=== PATIENT | male | born 1990 | race African-American/Black ===

== ENCOUNTER 2020-01-20 03:45 | Emergency (ER) | payer BC ==
[2020-01-20 04:06] VITALS: BP 126/75; PULSE 94; TEMP 98.6; BMI 32.3
[2020-01-20] MEDS ORDERED: DIPHTH,PERTUSS(ACELL),TET 0.5 ML DISP.SYRIN IM ONE ×2 (04:34→04:43)
[2020-01-20] MEDS ORDERED: AMOX TR/POT CLAV 875MG/125MG TABLETS (FP) PO ONE (04:34)
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
[2020-01-20] MEDS ORDERED: AMOX TR/POT CLAV 875MG/125MG TABLETS (FP) ONE (04:43)
[2020-01-20 04:59] LABS: HEMATOCRIT 47.5 % (35.4-49); HEMOGLOBIN 15.6 GM/dL (11.7-16.9); MCH 26.7 pg (25.7-33.7); MCHC 32.8 g/dl (32.0-35.9); MEAN CELL VOLUME 81.4 fl (80-96); MEAN PLT VOLUME 8.7 fl (7.5-11.1); PLATELET COUNT 201 K/MM3 (134-434); RBC 5.83 M/mm3 (4.00-5.60); RDW 15.4 % (11.9-15.9); WHITE BLOOD COUNT 7.4 K/mm3 (4.0-10.0)
== END 2020-01-20 05:49 | disposition home or self-care (01) ==
LOC: JER 03:45
PROC: 3E0234Z Introduction of Serum, Toxoid and Vaccine into Muscle, Percutaneous Approach (ICD-10-PCS; principal; 2020-01-20)
DX: S51.851A Open bite of right forearm, initial encounter (principal)
CPT/HCPCS: 36415; 80307; 85027; 90715; 99284-25

== ENCOUNTER 2022-02-12 17:44 | Emergency (ER) | payer BC ==
[2022-02-12 18:05] VITALS: BP 150/88; PULSE 77; RESP 18; TEMP 97; BMI 33.9
[2022-02-12] MEDS ORDERED: MAG HYDROX/AL HYDROX/SIMETH 30 ML UNIT-DOSE CUP PO ONE (19:41)
[2022-02-12] MEDS ORDERED: MAG HYDROX/AL HYDROX/SIMETH 30 ML UNIT-DOSE CUP ONE (19:41)
== END 2022-02-12 20:41 | disposition home or self-care (01) ==
LOC: JER 17:44
DX: R10.13 Epigastric pain (principal)
CPT/HCPCS: 99283-25

== ENCOUNTER 2023-12-06 13:14 | Emergency (ER) | payer BC ==
[2023-12-06 13:35] VITALS: BMI 36.0
[2023-12-06] MEDS ORDERED: LIDOCAINE 4% PATCH TP ONE (15:02)
[2023-12-06] MEDS ORDERED: ACETAMINOPHEN INJECTION 100 ML IVPB ONE (15:02)
[2023-12-06] MEDS ORDERED: METHOCARBAMOL 500 MG TABLET ONE (15:02)
[2023-12-06] MEDS: ACETAMINOPHEN 1000 MG/100 ML BAG IVPB ONE (15:19)
[2023-12-06] MEDS: SODIUM CHLORIDE 1,000 ML IV STA (15:19)
[2023-12-06] MEDS: METHOCARBAMOL 500 MG TABLET PO ONE (15:20)
[2023-12-06] MEDS: LIDOCAINE 5% TOPICAL PATCH TP ONE (15:20)
[2023-12-06 15:24] LABS: BASO % 0.1 % (0-2.0); EOS % 0.2 % (0-4.5); HEMATOCRIT 44.7 % (35.4-49); HEMOGLOBIN 14.9 GM/dL (11.7-16.9); LYMPH % 9.6 % (8-40); MCH 27.2 pg (25.7-33.7); MCHC 33.4 g/dl (32.0-35.9); MEAN CELL VOLUME 81.4 fl (80-96); MEAN PLT VOLUME 8.8 fl (7.5-11.1); MONO % 8.9 % (3.8-10.2); NEUT % 81.2 % (42.8-82.8); PLATELET COUNT 197 10^3/uL (134-434); RBC 5.49 M/mm3 (4.00-5.60); RDW 15.6 % (11.9-15.9); WHITE BLOOD COUNT 8.6 K/mm3 (4.0-10.0)
[2023-12-06 15:27] LABS: EPI CELLS 1 /uL (0-25.1); HYALINE CASTS 0 /uL (0-3.1); PH,URINE 5.5 (5.0-8.0); URINE APPEARANCE CLEAR; URINE BACTERIA 7 /uL (0-1359); URINE BILIRUBIN NEGATIVE (NEGATIVE); URINE COLOR YELLOW; URINE GLUCOSE (UA) NEGATIVE (NEGATIVE); URINE KETONE NEGATIVE (NEGATIVE); URINE LEUK ESTERASE NEGATIVE (NEGATIVE); URINE NITRITE NEGATIVE (NEGATIVE); URINE PROTEIN NEGATIVE (NEGATIVE); URINE RBC 10 /uL (0-23.9); URINE UROBILINOGEN 0.2 mg/dL (0.2-1.0); URINE WBC 4 /uL (0-25.8)
[2023-12-06 15:52] LABS: POTASSIUM 4.1 mmol/L (3.5-5.1)
[2023-12-06 15:55] LABS: BLOOD UREA NITROGEN 19.4 mg/dL (7-18); CALCIUM 8.8 mg/dL (8.5-10.1)
[2023-12-06 15:56] LABS: ALBUMIN 3.7 g/dl (3.4-5.0)
[2023-12-06 15:59] LABS: CREATININE 1.2 mg/dL (0.55-1.3)
[2023-12-06 16:00] LABS: TOT PROT 7.5 g/dl (6.4-8.2)
[2023-12-06] MEDS ORDERED: KETOROLAC TROMETHAMINE 15 MG/ML VIAL ONE (17:34)
[2023-12-06] MEDS: KETOROLAC TROMETHAMINE 15 MG/ML VIAL IVPUSH ONE (17:39)
[2023-12-06 17:40] VITALS: BP 124/75; PULSE 95; RESP 20; TEMP 97.7
[2023-12-06] MEDS ORDERED: LIDOCAINE PATCH REMOVAL MC SCH (22:00)
== END 2023-12-06 17:42 | disposition home or self-care (01) ==
LOC: JER 13:14
PROC: 3E033NZ Introduction of Analgesics, Hypnotics, Sedatives into Peripheral Vein, Percutaneous Approach (ICD-10-PCS; principal; 2023-12-06)
PROC: 3E0333Z Introduction of Anti-inflammatory into Peripheral Vein, Percutaneous Approach (ICD-10-PCS; 2023-12-06)
PROC: 3E0337Z Introduction of Electrolytic and Water Balance Substance into Peripheral Vein, Percutaneous Approach (ICD-10-PCS; 2023-12-06)
DX: R10.9 Unspecified abdominal pain (principal); M54.6 Pain in thoracic spine; R19.7 Diarrhea, unspecified; X50.0XXA Overexertion from strenuous movement or load, initial encounter
CPT/HCPCS: 36415; 74176-TC; 80053; 81003; 83690; 85025; 87086; 99284-25; J0131

== ENCOUNTER 2024-11-23 08:54 | Emergency (ER) | payer BC, OTHER ==
[2024-11-23 09:04] VITALS: BP 109/64; PULSE 73; RESP 20; TEMP 97.7; BMI 33.6
[2024-11-23] MEDS ORDERED: IBUPROFEN 600 MG TABLET (FP) PO ONE (09:20)
[2024-11-23] MEDS: IBUPROFEN 600 MG TABLET (FP) PO ONE (09:29)
[2024-11-23 11:18] LABS: HCV DIAGNOSTIC IN-HOUSE W/RFLX NON-REACTIVE (NONREACTIVE); HIV INTERPRETATION NEGATIVE (NEGATIVE)
== END 2024-11-23 10:09 | disposition home or self-care (01) ==
LOC: JERFT 08:54
DX: S49.92XA Unspecified injury of left shoulder and upper arm, initial encounter (principal); X50.0XXA Overexertion from strenuous movement or load, initial encounter; Y93.B9 Activity, other involving muscle strengthening exercises
CPT/HCPCS: 36415; 73030-TC-LT-FY; 86803; 87389; 99284-25